=== PATIENT | female | born 1960 | race Caucasian/White ===

== ENCOUNTER 2017-10-08 10:00 | Outpatient (RCR) | payer OTHER, SELFPAY ==
--- NOTE | 2017-09-03 11:03 | HP.PTEVAL_ITS ---
Patient's Visit Information MARZENA MACDONALD is a 56 year old F referred to Physical Therapy by TREVON BURT with a diagnosis of L knee sprain. Date of Evaluation: 09/03/17 Physical Therapist: Missael Briones, PT, - Visit Plan Frequency: 2x /Week Duration: 3 Weeks Plan: L LE stretching and strengthening, core stab ex's, nustep, and HEP - Subjective Subjective: Pt reports she injured her L knee one month ago when she stepped into a whole in ;the ground. Pt reports her knee was sore afterwards, but she kept on working on the project she was working on until the next day. Pt reports the pain was so bad the next day, she went to the Dr. where she had x rays taken and eventually an MRI. Xrays showed a minor crack in her tibia, and MRI showed bruising of bones and injury to cartiledge. Pt reports now it is hard to start walking, but once she does she is fine. No locking up or giving out on her. Pt reports she gets a stabbing pain if she moves her L knee wrong. No sleep diff secondary to pain. No LE T or N. - Pain L knee Pain Intensity (Out of 10): 1 Pain Intensity Range: 5 - Objective Neuro: B LE sensation is WNL to light touch. Palpation: Pt reports pain on pes anserine region, medial joint line, and med patella regions. No obvious deformity present. Girth at joint line: R knee is 34 cm, L knee 35 cm. ROM: R knee 0-140 degrees, L knee 0-130 degrees. MMT: R knee 5/5 throughout. L knee flex= 4/5, ext= 4-/5. Special test: No pos findings - Goals Goal 1:: Decrease L knee pain x 50% to aid with IADL's Goal Time Frame: 2-4 Weeks Goal 2:: Increase L knee strength x 1 grade to aid with stair negotiation Goal Time Frame: 2-4 Weeks Goal 3:: Increase L knee ROM x 5-10 degreees to aid with restoring normalized gait pattern Goal Time Frame: 2-4 Weeks Goal 4:: I with HEP Goal Time Frame: 2-4 Weeks - Rehabilitation Potential Physical Therapy Diagnosis: L knee pain, weakness and swelling secondary to L knee sprain Rehabilitation Potential: Good - Anticipated Interventions Patient/Client Instruction: Educate patient on: Condition, Plan of Care For the Purpose of:: To improve self management Therapeutic Exercise to Include: Strength training, Endurance training, Flexibilty training, Active ROM, Dynamic Lumbar Stabilization For the Purpose of:: To decrease pain, To increase ROM, To improve muscle performance and motor function Cryotherapy (ice pack, ice massage): Yes For the Purpose of:: To decrease pain Thank you for the opportunity to evaluate your patient. For Medicare and Medicare HMO plans, please review the plan of care and approve it. It will need to be FAXED BACK to us at [phone] for Medicare purposes. Please let me know if there are questions or concerns regarding this plan of care. Physician Signature: Date:
--- NOTE | 2018-01-02 16:20 | HP.PT.NRP ---
HP - Discharge Summary (1) - Patient Information MARZENA MACDONALD was seen in my office for initial evaluation on 09/03/17. The following Plan of Care was established for this patient: Initial Frequency: 2x /Week Initial Duration: 3 Weeks - Anticipated Interventions Patient/Client Instruction: Educate patient on: Condition, Plan of Care For the Purpose of:: To improve self management Therapeutic Exercise to Include: Strength training, Endurance training, Flexibilty training, Active ROM, Dynamic Lumbar Stabilization For the Purpose of:: To decrease pain, To increase ROM, To improve muscle performance and motor function Cryotherapy (ice pack, ice massage): Yes For the Purpose of:: To decrease pain This patient was last seen in our office . Pertinent comments regarding their Physical therapy will appear below: Pt was last scheduled for PT on the date of 10/31/17. Pt cancelled that appt and has not returned through todays date. Pt is discontinued at this time. At this point I will be discontinuing this patient from physical therapy. I would be happy to see this patient again in the future if found appropriate by the physician. Thank you! Missael Briones, PT,
== END 2017-10-08 19:00 | disposition home or self-care (01) ==
LOC: PT 10:00
DX: S83.522D Sprain of posterior cruciate ligament of left knee, subsequent encounter (principal)
CPT/HCPCS: 97110; 97161; 97530

== ENCOUNTER 2018-04-12 21:54 | Emergency (ER) | payer OTHER, SELFPAY ==
[2018-04-12 21:57] VITALS: BP 115/82; PULSE 83; RESP 20; TEMP 36.7; O2SAT 100; BMI 24.0
--- NOTE | 2018-04-12 22:14 | RAD_ITS ---
STUDY: X-RAY - UNILATERAL RIBS ( LEFT ) WITH CHEST REASON FOR EXAM: Female, 57 years old. Left lower anterior rib pain. Status post Heimlich. TECHNIQUE - RIBS: 4 view(s) of the ribs. TECHNIQUE - CHEST: 1 COMPARISON: None. FINDINGS - RIBS: Normal visualized ribs without a demonstrated fracture. FINDINGS - CHEST: The lungs are clear and expanded. There is no demonstrated pleural abnormality. Normal size heart. Normal mediastinum and harriet. Normal visualized pulmonary arteries. Normal visualized aortic arch and descending thoracic aorta. Normal visualized thoracic spine. Normal visualized ribs, clavicles, and shoulders. There is no demonstrated abnormality of the visualized soft tissue structures of the upper abdomen. RAD/Ribs Uni Min 3V w/PA Chest IMPRESSION: RIBS: Normal x-ray examination of the ribs. CHEST: Normal x-ray examination of the chest. Electronically Signed: Sadia Loyd MD at 23:59 EST Tel , Service support ,
--- NOTE | 2018-04-12 23:13 | ED.DCSUM_ITS ---
- ER Visit Summary Date of Service: 04/12/18 Chief Complaint: Rib pain History of Present Illness: The patient is a 57 F presenting for evaluation secondary to a rib injury. Patient reports that she was at a steak house and started choking on a chip. She states that she was coughing, her had her on the back, and then she further aspirated the chip to the point where she could not breathe. She received the Heimlich maneuver and expelled the chip. Now she is complaining of pain in her left ribs. Physical Examination: Vital signs are within normal limits, patient is afebrile. General: Patient is well-nourished well-developed and in no acute distress. Head: Normocephalic, atraumatic Eyes: Pupils equal round and reactive bilaterally, extra occular motion intact bialterally ENT: Moist mucous membranes Neck: Supple, no lymphadenopathy, no JVD, no meningismus CVS: Heart regular rate and rhythm, no murmurs, rubs or gallops, radial pulses 2+ bilaterally Resp: Respirations nondistressed, lung sounds clear bilaterally, left anterior rib tenderness to palpation without evidence of crepitus step-offs or deformity Abdomen: Soft, nontender, nondistended, no palpable masses, normal bowel sounds Back: Nontender Extremities: Nontender, atraumatic, active full range of motion, no peripheral edema Skin: warm, no rashes, no petechia Neuro: Alert and oriented x 4, CN 2-12 intact, no lateralizing neurological defecits Psyc: Normal affect Test Results: Rib series shows no evidence of new thorax, no evidence of rib fractures Emergency Department Course and Treatment: Patient presenting for evaluation secondary to rib injury after getting the Heimlich maneuver. Her oxygenation is normal. Her x-ray is negative. Patient likely has an element of a rib contusion will be treated with lidocaine patches. Disposition: Discharge Impression: 1. Left rib contusion This note was generated with [employer] dictation software. It may contain incorrect words, spelling, and punctuation that were not noted in review of the chart prior to signing ED Disposition - Plan for ED Patient: Disposition: Home or Assisted Living Chief Complaint: Chest Other Diagnosis: Contusion of rib on left side Instructions: ED Contusion Chest Wall Prescriptions: Lidocaine [Lidoderm] 1 ea TP DAILY #10 adh..patch Referrals: [facility] Doctor,Out of [Primary Care Provider] -
[2018-04-12] MEDS: Ibuprofen 200 MG Tablet 400 MG PO (23:26)
[2018-04-13 00:14] VITALS: PULSE 75; RESP 15; O2SAT 100
== END 2018-04-13 00:15 | disposition home or self-care (01) ==
PROVIDERS: Emergency Provider Emergency Medicine
DX: S20.212A Contusion of left front wall of thorax, initial encounter (principal); T17.220A Food in pharynx causing asphyxiation, initial encounter; Y92.511 Restaurant or cafe as the place of occurrence of the external cause; Y99.8 Other external cause status
CPT/HCPCS: 71101; 99283

== ENCOUNTER 2018-12-09 19:41 | Emergency (ER) | payer OTHER, SELFPAY ==
[2018-12-09 19:42] VITALS: BP 159/82; PULSE 90; RESP 17; TEMP 36.6; O2SAT 100; BMI 23.2
--- NOTE | 2018-12-09 19:46 | ED.RN ---
NO OLD EKGS IN MUSE
--- NOTE | 2018-12-09 20:21 | EKG12_ITS ---
Test Reason : CP Blood Pressure : / mmHG Vent. Rate : 092 BPM Atrial Rate : 092 BPM P-R Int : 180 ms QRS Dur : 090 ms QT Int : 376 ms P-R-T Axes : 072 068 056 degrees QTc Int : 464 ms Normal sinus rhythm Normal ECG Confirmed by RENALDO TRACY ([id number]), map editor MIC ENRIQUEZ ([id number]) on 12/11/2018 1:41:32 PM Referred By: PATRIC Confirmed By:RENALDO TRACY
--- NOTE | 2018-12-09 20:22 | CT_ITS ---
STUDY: CTA CHEST REASON FOR EXAM: Female, 57 years old. Back pain RADIATION DOSAGE (If Supplied By Facility): CTDIvol = ( 8.24 ) mGy, DLP = ( 693.33 ) mGycm TECHNIQUE: The examination was performed with the intravenous administration of 100 IV Isovue 370. Post-processing of the angiographic images was performed, with multiplanar reformation and 3D reconstruction. Individualized dose optimization techniques were used for this CT. COMPARISON: None. FINDINGS: Normal enhancement of the main pulmonary artery and right and left pulmonary arteries. Normal enhancement of the bilateral peripheral pulmonary arteries. There is no demonstrated pulmonary embolism. Normal thoracic aorta and visualized great vessels. There is no demonstrated aortic dissection. Normal heart and pericardium. Normal mediastinum. Normal hilar regions. Normal visualized trachea and bronchi. The lungs are well expanded. Normal pulmonary parenchyma. Normal pleura. Normal chest wall structures. Dorsal spine demonstrates moderate spondylosis Small cyst in left lobe of the liver. CT/CTA Chest W/WO Contrast IMPRESSION: No acute abnormalities. Specifically no evidence for aortic aneurysm periaortic leak or dissection.. No evidence for pulmonary embolus Electronically Signed: Josias Bazzi MD at 21:19 EDT , Service support ,
--- NOTE | 2018-12-09 20:22 | CT_ITS ---
STUDY: CT ABDOMEN AND PELVIS WITH CONTRAST REASON FOR EXAM: Female, 57 years old. Back pain RADIATION DOSAGE (If Supplied By Facility): CTDIvol = ( 8.24 ) mGy, DLP = ( 693.33 ) mGycm TECHNIQUE: Transaxial images were obtained from the dome of the diaphragm to the symphysis pubis without oral contrast. 100 IV Isovue 370 was administered. Sagittal and coronal images were reconstructed. Individualized dose optimization techniques were used for this CT. COMPARISON: None. FINDINGS: The visualized lung bases are unremarkable. The visualized portions of the heart are within normal limits. Liver is normal size. There is a small cyst in left lobe. Bile ducts are not dilated. Gallbladder has been removed surgically.. Normal spleen. Normal pancreas. Normal bilateral adrenal glands. Normal right kidney. Normal left kidney. Retroaortic left renal vein of uncertain clinical significance Normal visualized stomach. Normal small intestine. Mild nonspecific colonic ileus with diffuse fecal retention in the colon. Minor diverticular changes in the sigmoid colon without evidence for acute epiglottitis. The appendix is visualized and appears normal. Normal abdominal aorta. Normal inferior vena cava. Normal retroperitoneum. Normal urinary bladder. Normal size uterus demonstrating calcified fibroid measuring 2.23 x 2.24 cm. There there is also a hypoattenuated density within the lower uterine segment possibly representing cervical fibroid or large nabothian cyst Normal abdominal wall. Lumbar spine demonstrates mild spondylosis. CT/Abdomen/Pelvis W IV Cont ONLY IMPRESSION: Postsurgical changes status post cholecystectomy Minor diverticular disease of the sigmoid colon without evidence for acute diverticulitis Intrauterine fibroid which may be further assessed with pelvic sonogram if clinically warranted No acute abnormalities with other findings as above Electronically Signed: Josias Bazzi MD at 21:24 EDT , Service support ,
[2018-12-09 20:32] LABS: Absolute Lymphocyte Count 2.63 X10^3/ul (0.83-4.51); Absolute Neutrophil Count 4.2 X10^3/uL (2.0-7.7); Basophil# 0.03 X10^3/uL; Basophil% 0.4 % (0-1); Eosinophil# 0.05 X10^3/uL; Eosinophils% 0.7 % (0-5); Hematocrit 37.4 % (37-47); Hemoglobin 12.6 g/dl (12.0-15.0); Lymphocyte # 2.63 X10^3/ul (4.0); Mean Corp Hgb Conc 33.7 g/gl (32-36); Mean Corpuscular Hgb 33.2 pg (27.0-32.0); Mean Corpuscular Volume 98.4 fL (81-99); Monocyte# 0.59 X10^3/uL; Monocyte% 7.8 % (0-10); Neutrophil # 4.21 X10^3/uL (2.7-7.7); POSITIVE COUNT NO; POSITIVE DIFFERENTIAL NO; POSITIVE MORPHOLOGY NO; Platelet Count 332 K/mm3 (150-450); RBC Distribution Width CV 12.2 % (11.6-14.6); RBC Distribution Width SD 43.8 fl (35.1-43.9); White Blood Count 7.5 K/mm3 (4.4-11.0)
--- NOTE | 2018-12-09 20:37 | ED.VISSUMM ---
- ER Visit Summary Date of Service: 12/09/18 Chief Complaint: Back pain History of Present Illness: The patient is a 57 F presenting with back pain. Patient states that she was on the phone and was trying to withhold a cough. She states she had sudden pain in her lower back that radiated to the top of her back. She had a spasm sensation. This lasted approximately 5 minutes. She denies chest pain or shortness of breath associated with this. She states approximately an hour and a half later she had another similar episode. Her symptoms are now improved. Physical Examination: Vitals are stable. Patient is afebrile. Alert no acute distress. HEENT exam is unremarkable. Neck is supple. Lungs are clear and equal bilaterally. Heart is regular rate and rhythm. Abdomen is soft nontender nondistended. Extremities are unremarkable. Skin is warm and dry. No focal neurologic deficit. Anxious Remainder of exam is unremarkable. Emergency Department Course and Treatment: Patient was given Valium. EKG is normal sinus rhythm rate of 92 with no acute ischemic changes. CBC, chemistries unremarkable other than sodium 128. She was given IV fluids. Troponin is negative. CTA chest, abdomen pelvis shows no acute process. On repeat evaluation, patient is resting comfortably. Repeat troponin is negative. Patient is advised to follow-up with her primary care physician. She is given prescription for Flexeril. Advised to return ED for worsening complaints. Disposition: Discharge home Impression: Back spasm This note was generated with [employer] dictation software. It may contain incorrect words, spelling, and punctuation that were not noted in review of the chart prior to signing ED Disposition - Plan for ED Patient: Instructions: BACK SPASM, No Trauma Prescriptions: cycloBENZAPRine HCl [Flexeril] 10 mg PO TID PRN #20 tab PRN Reason: Muscle Spasm Prescription Printed Referrals: [facility] Doctor,Out of [Primary Care Provider] -
[2018-12-09] MEDS: diazePAM 2 MG Tablet PO (20:38)
[2018-12-09 20:43] LABS: Anion Gap 9 (5-15); BUN 15 mg/dL (7-18); Calcium,Total 9.1 mg/dL (8.5-10.1); Chloride 93 mmol/L (98-107); EST Glomerular Filtration Rate 61 mL/min (>60); Est Glom Filt Rate - Afr Amer 73 mL/min (>60); Glucose 93 mg/dL (74-106); Potassium 3.8 mmol/L (3.5-5.1); Sodium Level 128 mmol/L (136-145)
[2018-12-09 21:41] VITALS: BP 127/68; PULSE 74; RESP 18; O2SAT 100
[2018-12-09] MEDS: 0.9% Normal Saline 1,000 ML 999 ML IV (21:41)
[2018-12-09 22:58] VITALS: BP 108/66; PULSE 70; RESP 16; O2SAT 100
[2018-12-09] MEDS: diazePAM 2 MG Tablet 1 MG PO (22:58)
--- NOTE | 2018-12-09 23:16 | ED.DEP ---
ED Disposition - Plan for ED Patient: Instructions: BACK SPASM, No Trauma Prescriptions: cycloBENZAPRine HCl [Flexeril] 10 mg PO TID PRN #20 tablet PRN Reason: Muscle Spasm Referrals: [facility],Out of [Primary Care Provider] -
[2018-12-09 23:30] VITALS: BP 114/59; PULSE 78; RESP 16; O2SAT 100
== END 2018-12-09 23:36 | disposition home or self-care (01) ==
PROVIDERS: Emergency Provider Emergency Medicine
DX: M62.830 Muscle spasm of back (principal)
CPT/HCPCS: 71275; 74177; 80048; 84484; 85025; 93005; 96360; 99285; J7030; Q9967; A4216

== ENCOUNTER → 2018-12-19 13:23 | Outpatient (CLI) | payer OTHER, SELFPAY ==
[2018-12-09 19:42] VITALS: BMI 23.2
--- NOTE | 2018-12-19 13:30 | RAD_ITS ---
STUDY: X-RAY - RIGHT SHOULDER REASON FOR EXAM: Female, 58 years old. 10 day history of pain. TECHNIQUE: 4 view(s) of the shoulder. COMPARISON: None. FINDINGS: Normal glenohumeral articulation. There is minimal widening of the AC joint suggesting a Type I acromioclavicular joint separation. Normal acromion. Normal humeral head and visualized proximal humerus. The soft tissue structures are unremarkable. Normal visualized pulmonary apex. RAD/Shoulder min 2 Views IMPRESSION: Minimal widening of the right acromioclavicular joint. Electronically Signed: Carlos Enrique Gar, at 14:22 EDT , Service support ,
== END ==
DX: M25.511 Pain in right shoulder (principal)
CPT/HCPCS: 73030

== ENCOUNTER → 2019-02-05 16:09 | Outpatient (CLI) | payer OTHER, SELFPAY | PROVIDERS: Referring Provider Otolaryngology; Visit Provider Otolaryngology | DX: T78.40XA Allergy, unspecified, initial encounter (principal) | CPT/HCPCS: 36415 ==

== ENCOUNTER → 2019-05-05 13:54 | Outpatient (CLI) | payer OTHER, SELFPAY ==
[2019-05-05 15:34] LABS: T4 Free Direct 0.99 ng/dL (0.76-1.46)
== END ==
PROVIDERS: Referring Provider Internal Medicine Pulmonary Disease; Visit Provider Internal Medicine Pulmonary Disease
DX: L85.3 Xerosis cutis (principal); G47.33 Obstructive sleep apnea (adult) (pediatric)
CPT/HCPCS: 36415; 84439; 84443

== ENCOUNTER 2023-03-05 10:00 | Outpatient (RCR) | payer OTHER, SELFPAY ==
--- NOTE | 2022-11-05 12:30 | HP.PTEVAL ---
Patient's Visit Information MARZENA MACDONALD is a 61 year old F referred to Physical Therapy by SON LUKE with a diagnosis of B knee pain. Date of Evaluation: 11/05/22 Physical Therapist: Missael Briones, PT, ATC - Visit Plan Frequency: 2x /Week Duration: 6 Weeks Plan: B LE strengthening, core stab ex's, balance and proprio, Nustep, HEP - Subjective Pt reports she tore meniscus in her L knee approximately one year ago. Pt notes she had PT at that time that focused on her L knee, but pt notes in the meantime, her R knee became really weak from neglect. Pt reports she is here today to strengthen B LE's. Pt notes her L knee is not sore today, but her R knee is sore. Pt reports this pain will effect her sleep when the pain is bad. Pt reports her R knee will occasionally pop. Pt denies R knee locking up or giving out on her. Pt reports she has had xrays which reveal that her R knee is bone on bone. Pt denies any tingling or numbness at this time. Pt has stairs at home and notes when her pain is bad, stairs can be difficult to negotiate. Pt is not able to kneel or squat at this time. 0/10 pain at rest, 8/10 pain at worst. - Pain R knee Pain Intensity (Out of 10): 0 Pain Intensity Range: 8 - Objective Neuro: B LE sensation is WNL to light touch. B achilles reflex= 1/3. Girth at joint line: B knees are 38 cm. ROM: L knee 0-125, R knee 0-12-118 degrees. MMT: L knee flex= 34, ext= 40 #F; R knee flex= 23, ext= 34. Special tests: No positive tests secondary to pt being very apprehensive with testing - Balance/Special Test Scores Lower Extremity Functional Score: 46 - Goals Goal 1:: Decrease R knee pain x 50% to aid with sleep Goal Time Frame: 4-6 Weeks Goal 2:: Increase R knee ROM x 15 degrees to aid with squatting type of activity Goal Time Frame: 4-6 Weeks Goal 3:: Increase R knee strength x 10 #F to aid with stair negotiation Goal Time Frame: 4-6 Weeks Goal 4:: I with HEP Goal Time Frame: 4-6 Weeks - Rehabilitation Potential Physical Therapy Diagnosis: Pt has B knee pain, weakness, and limited R knee ROM secondary to degenerative changes to B knees Rehabilitation Potential: Good - Anticipated Interventions Patient/Client Instruction: Educate patient on: Condition, Plan of Care For the Purpose of:: To improve self management Therapeutic Exercise to Include: Strength training, Endurance training, Balance training, Active ROM, Dynamic Lumbar Stabilization For the Purpose of:: To decrease pain, To increase ROM, To improve muscle performance and motor function Cryotherapy (ice pack, ice massage): Yes For the Purpose of:: To decrease pain Thank you for the opportunity to evaluate your patient. For Medicare and Medicare HMO plans, please review the plan of care and approve it. It will need to be FAXED BACK to us at [phone] for Medicare purposes. For Medicare only, by signing this I certify the plan of care. Please let me know if there are questions or concerns regarding this plan of care. Physician Signature: Date:
--- NOTE | 2022-12-28 13:05 | HP.PTREVAL ---
Re-Evaluation Intro: SON LUKE, It has been my pleasure to treat MARZENA MACDONALD over the last 13 visits for B knee pain. Please see the progress note below for an update on the physical therapy plan of care! Subjective Subjective: I dont have any pain now, but by tonight it will be 4/10 Objective Objective/Function: B knee pain ranges from 0-4/10 MMT: R knee flex= 23, ext= 29 #F; L knee flex= 32, ext= 46 #F ROM: R knee 0-128; L knee 0-130 ROM is excellent, pain and strength are still improving. Plan Plan Plan: B LE strengthening, core stab ex's, balance and proprio, Nustep, HEP. Will need a copy of all exercise at d/c to carry-over to [facility] [facility] and HEP. Balance/Gait/Functional tests Balance/Special Test Scores Lower Extremity Functional Score: 50 Goals Goals Goal 1:: Decrease R knee pain x 50% to aid with sleep Goal Time Frame: 4-6 Weeks Goal Progress: Progressing Goal 2:: Increase R knee ROM x 15 degrees to aid with squatting type of activity Goal Time Frame: 4-6 Weeks Goal Progress: Goal Met Goal 3:: Increase R knee strength x 10 #F to aid with stair negotiation Goal Time Frame: 4-6 Weeks Goal Progress: Progressing Goal 4:: I with HEP Goal Time Frame: 4-6 Weeks Goal Progress: Progressing Anticipated Interventions Anticipated Interventions Patient/Client Instruction: Educate patient on: Condition and Plan of Care For the Purpose of:: To improve self management Therapeutic Exercise to Include: Strength training, Endurance training, Balance training, Active ROM and Dynamic Lumbar Stabilization For the Purpose of:: To decrease pain, To increase ROM and To improve muscle performance and motor function Cryotherapy (ice pack, ice massage): Yes For the Purpose of:: To decrease pain Re-Evaluation Ending Re-evaluation ending: Please do not hesitate to contact me at [phone] by phone or if you have questions or concerns regarding this new plan of care! Sincerely, Missael Briones, PT, ATC
--- NOTE | 2023-05-14 08:32 | HP.PTDCNRP_ITS ---
Patient Information Patient Information: MARZENA MACDONALD was seen in my office for initial evaluation on 11/05/22. The following Plan of Care was established for this patient: POC Established Initial Frequency: 2x /Week Initial Duration: 6 Weeks Anticipated Interventions Patient/Client Instruction: Educate patient on: Condition and Plan of Care For the Purpose of:: To improve self management Therapeutic Exercise to Include: Strength training, Endurance training, Balance training, Active ROM and Dynamic Lumbar Stabilization For the Purpose of:: To decrease pain, To increase ROM and To improve muscle performance and motor function Cryotherapy (ice pack, ice massage): Yes For the Purpose of:: To decrease pain Last Seen Last Seen: This patient was last seen in our office . Pertinent comments regarding their Physical therapy will appear below: Pt was treated for bilateral knee pain for 23 visits through the date of 03/05/23. Pt has not returned through todays date and is discontinued at this ti me. At this point I will be discontinuing this patient from physical therapy. I would be happy to see this patient again in the future if found appropriate by the physician. Thank you! Missael Briones, PT, ATC Balance/Gait/Functional tests Balance/Special Test Scores Lower Extremity Functional Score: 50
== END 2023-03-05 19:00 | disposition home or self-care (01) ==
LOC: PT 10:00
DX: S83.8X2D Sprain of other specified parts of left knee, subsequent encounter (principal); M17.0 Bilateral primary osteoarthritis of knee
CPT/HCPCS: 97110; 97161; 97164